=== PATIENT | male | born 1935 | race Caucasian/White ===

== ENCOUNTER → 2024-06-15 | Outpatient (CLI) | payer OTHER, SELFPAY ==
[2024-06-15 10:48] LABS: Collection Type, Urine Clean Catch
[2024-06-15 11:06] LABS: Basophils % (Auto) 0 % (0-2.5); Eosinophils % (Auto) 0 % (0-10); Hematocrit 34.5 % (41.0-53.0); Hemoglobin 11.3 g/dL (13.5-16.0); Immature Granulocytes % (Auto) 0 % (0-0); Immature Granulocytes Auto 0.01 Thou/mm3 (0.00-0.00); Lymphocytes # (Auto) 1.8 Thou/mm3 (1.0-4.8); Lymphocytes % (Auto) 23 % (10-50); Mean Corpuscular HGB Conc 32.8 g/dl (31.0-37.0); Mean Corpuscular Hemoglobin 30.8 pg (25.0-35.0); Mean Corpuscular Volume 94 fL (80-100); Monocytes # (Auto) 0.7 Thou/mm3 (0.0-0.8); Monocytes % (Auto) 9 % (0-12); Neutrophils # (Auto) 5.3 Thou/mm3 (1.8-7.7); Neutrophils % (Auto) 67 % (37-80); Nucleated Red Blood Cell % 0 /100 WBC (0); Platelet Count 186 Thou/mm3 (140-440); RDW Standard Deviation 55.1 fL (35.1-43.9); Red Blood Count 3.67 Miln/mm3 (4.50-5.90); White Blood Count 7.9 Thou/mm3 (3.8-10.6)
[2024-06-15 11:21] LABS: Squamous Epithelial Cell,Urine 1 /hpf (0-5)
[2024-06-15 11:31] LABS: Bilirubin,Urine Negative (Negative); Blood,Urine 1+ (Negative); Clarity,Urine Clear (Clear/Hazy); Color,Urine Lt-Yellow (Lt Yel-Yel); Glucose, Urine Negative (Negative); Ketones,Urine Negative (Negative); Leukocyte Esterase,Urine Negative (Negative); Nitrite,Urine Negative (Negative); PH,Urine 6.5 (5.0-7.0); Protein,Urine 1+ (Neg - Trace); RBC,Urine 5 /hpf (0-3); Specific Gravity,Urine 1.018 (1.001-1.035); Urobilinogen,Urine Negative mg/dL (0.0-1.0); WBC,Urine 2 /hpf (0-5)
[2024-06-15 12:53] LABS: Glucose Estimated Average 103 mg/dL (80-131); Hemoglobin A1C 5.2 % Hgb (4.8-6.0)
[2024-06-15 13:14] LABS: Alkaline Phosphatase 80 U/L (46-116); Thyroid Stimulating Hormone 2.54 uIU/mL (0.55-4.78)
[2024-06-15 14:04] LABS: Alanine Aminotransferase 28 U/L (10-49); Albumin, Serum 4.1 gm/dL (3.4-4.8); Albumin/Globulin Ratio 1.7 (1.2-2.2); Anion Gap 11 (7-16); Aspartate Amino Transferase 57 U/L (0-34); BUN/Creatinine Ratio 11 Ratio (12-20); Bilirubin,Total 0.4 mg/dL (0.3-1.2); Blood Urea Nitrogen 9 mg/dL (9-23); Calcium 9.3 mg/dL (8.3-10.6); Calcium (Corrected) 9.3 mg/dL (8.5-10.1); Carbon Dioxide 27.1 mMol/L (20.0-31.0); Cardiac Risk Estimate 1.8 RATIO (4.0-6.7); Chloride 106 mMol/L (98-107); Cholesterol 149 mg/dL (132-200); Creatinine (Component) 0.8 mg/dL (0.6-1.3); Globulin 2.4 gm/dL (2.3-3.5); Glucose 105 mg/dL (74-106); HDL Cholesterol 84 mg/dL (40-60); LDL Cholesterol,Calculated 55 mg/dL (0-130); Osmolality,Calculated 285 (275-295); Sodium 144 mMol/L (136-145); Total Protein 6.5 gm/dL (5.7-8.2); Triglycerides 51 mg/dL (30-150); eGFR > 60 See Note
== END | disposition home or self-care (01) ==
LOC: COPL 10:17
PROVIDERS: PCP Internal Medicine; Referring Provider Internal Medicine; Visit Provider Internal Medicine
DX: E11.9 Type 2 diabetes mellitus without complications (principal); I10 Essential (primary) hypertension; E78.5 Hyperlipidemia, unspecified
CPT/HCPCS: 36415; 80053; 80061; 81001; 83036; 84443; 85025

== ENCOUNTER 2024-07-07 17:33 | Emergency (ER) | payer MEDICARE, SELFPAY ==
[2024-07-07 17:49] VITALS: PULSE 74; RESP 16; O2SAT 99; BMI 27.4
[2024-07-07 18:05] VITALS: BP 117/68; PULSE 59; RESP 18; TEMP 36.4; O2SAT 94
--- NOTE | 2024-07-07 18:18 | XR_ITS ---
Examination: CT brain head without contrast. 2-D sagittal coronal reconstructions Date and time of exam:July 07, 2024, 1910 hours Comparison July 21, 2023 INDICATIONS: Patient fell today with injury to the head, head pain CTDI: vol (mGy):54.3 DLP: (mGycm):1114 Technique: Multiple CT axial sections of the brain have been obtained, 5 mm slice thickness. Contrast has not been administered. 2-D sagittal, coronal reconstructions have been obtained Low dose protocols were performed. One or more of the following dose reduction techniques were used; automated exposure control, adjustment of the mA and/or KV according to patient size, use of iterative reconstruction technique. Findings: No significant ventricular enlargement. Intra-axial or extra-axial hemorrhage density is not seen. No mass effect or midline shift Basal cisterns are not remarkable. Fourth ventricle is midline. Cranial vault intact. Impression: Negative for acute hemorrhage, mass effect or midline shift
--- NOTE | 2024-07-07 18:18 | EKG_ITS ---
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
--- NOTE | 2024-07-07 18:19 | PD.EDFALL ---
ED Fall Injury RME/HPI General Chief Complaint: Fall Stated Complaint: ALTERED Time Seen by Provider: 07/07/24 18:13 Arrival date/time: 07/07/24 17:33 RME / HPI RME / HPI Narrative: 88-year-old male patient who came in for evaluation by EMS regarding hypoglycemia. Patient was noted to be altered, and was found in the floor lying on the floor when the EMS arrived patient blood sugar was noted to be on the low 60s. Patient was given D10 and went up above 200. Currently patient is alert and oriented x 3 and told me that he had no complaints. Related Data Home Medications ?Medication ?Instructions ?Recorded ?Confirmed Multivitamins (Daily Multiple 1 tab PO QDAY ##0 03/17/14 06/18/20 Vitamin) omega-3 fatty acids 1,000 mg 1 cap PO QDAY ##0 03/17/14 06/18/20 capsule (Fish Oil Concentrate) atorvastatin 20 mg tablet 20 mg PO QDAY 11/12/18 06/18/20 losartan 50 mg tablet 50 mg PO QDAY 11/12/18 06/18/20 metformin 850 mg tablet 850 mg PO QDAY 11/12/18 06/18/20 Held on 06/18/20. Instructions: Resume on 06/21/20. ticagrelor 90 mg tablet (Brilinta) 90 mg PO BID 11/12/18 06/18/20 aspirin 81 mg tablet 81 mg PO QDAY 06/14/20 06/18/20 Previous Rx's ?Medication ?Instructions ?Recorded Calcium/Magnesium (Calcium 1 tab PO QDAY 11/03/18 Magnesium Tablet) cholecalciferol (vitamin D3) 25 2,000 iu PO QDAY 11/03/18 mcg (1,000 unit) tablet (Vitamin D3) multivitamin with minerals-ferrous 1 tab PO QDAY 11/03/18 sulfate 4.5 mg iron tablet (One Daily Multivitamins with Minerals) acetaminophen 300 mg-codeine 15 mg 1 tab PO BID PRN pain #8 tabs 06/05/22 tablet Allergies Allergy/AdvReac Type Severity Reaction Status Date / Time No Known Allergies Allergy Verified 07/22/23 09:02 Review of Systems Review of Systems Narrative Review of Systems: Review of system reviewed and within normal limits except mentioned in HPI ED Exam Narrative Physical exam: VITAL SIGNS: Reviewed. GENERAL APPEARANCE: Alert and interactive, follows commands, no acute distress, HEAD AND FACE: Non-traumatic. ENT: PERRL, pink conjunctivitis, eyelid no trauma, Mucous membrane moist. NECK: Supple, nontender, no nuchal rigidity. CHEST: No tenderness, no crepitus, no paradoxical movement, no retractions. LUNGS: Clear, well ventilated, symmetric, no rales, no wheezing, no ronchi, no stridor, good breath sounds bilaterally. HEART: Regular rate, regular rhythm, no murmur, no gallops. ABDOMEN: Soft, positive bowel sounds, nondistended, no guarding, nontender, no rebound, no masses, RECTAL: Deferred. GENITAL: Deferred. NEUROLOGICAL: Gross motor function intact sensory function intact, Appropriate for age. MUSCULOSKELETAL: low back nontender, full range of motion. EXTREMITIES: Nontender, full range of motion. SKIN: Color pink, dry, no rash, no lacerations, no abrasions, no contusions. LYMPHATICS: Deferred. Course Quality Measures none Orders Category Date Time Status EKG (ED ONLY) *Do not use* NOW Care 07/07/24 18:[address] head/brain wo con Stat Exams 07/07/24 18:18 Completed EKG (ED Only) Stat Exams 07/07/24 18:18 Draft CBC [CBC] Stat Lab 07/07/24 18:33 Completed CMP [Comprehensive Metabolic Panel] Stat Lab 07/07/24 18:33 Completed UA, C/S IF [Urinalysis, C/S if Indicated] Stat Lab 07/07/24 19:41 Completed Vital Signs Vital signs: Vital Signs Temperature 97.6 F 07/07/24 18:05 Pulse Rate 59 L 07/07/24 18:05 Respiratory Rate 18 07/07/24 18:05 Blood Pressure 117/68 07/07/24 18:05 Pulse Oximetry (%) 94 L 07/07/24 18:05 Oxygen Delivery Method Room Air 07/07/24 18:05 Fall MDM Narrative MDM Narrative:: 88-year-old male patient who came in for evaluation by EMS regarding hypoglycemia. Patient was noted to be altered, and was found in the floor lying on the floor when the EMS arrived patient blood sugar was noted to be on the low 60s. Patient was given D10 and went up above 200. Currently patient is alert and oriented x 3 and told me that he had no complaints. On multiple reevaluation patient is denying any complaints. Patient is alert and oriented x 3, workup today all came back unremarkable CT scan of the head came back unremarkable, EKG showed paced rhythm, ventricular rate of 65 bpm, CT interval 247 MS, no ST segment elevation depression noted. I spoke with patient's PCP, Dr. Jaimes, discussed the case, and told me that she cannot force the patient to go to a mcc. Her daughter wants her to go to a mcc. Prior to discharge I asked the patient again and told me that he can take care of himself he does not want to go to a mcc. Patient data External records reviewed:: None Clinical information provided by:: patient Social determinants that could affect healthcare access:: none Patient has the following chronic illnesses:: Hypertension diabetes mellitus, How is presenting disease/condition affected by chronic disease/condition?: exacerbated by Evaluation data The following diagnostics were reviewed and interpreted by me:: lab results, radiology exam(s) and EKG tracing(s) Lab and/or radiology exams considered but not ordered:: None Interpretation Summary: See results in MDM none Medications / Prescriptions Medications or Prescriptions considered but not ordered:: None Medication administrations:: None Consultations Consultation(s) initiated? (list below): No Diagnosis Fall Differential Diagnosis: other (Fall, hypoglycemia, dehydration) Most likely diagnosis given after review of the tests above:: Fall Admission Indicated Admission indicated?: not indicated Admission Request Was there a request for admission?: No Disposition Plan Disposition Plan: Discharge Discharge Attestation Discharge Attestation: The patient and all family members were given an opportunity to ask questions and understood the discharge instructions. Discharge instructions specifically effects, indications for sooner follow up or return to the emergency department, and the expected course of current diagnosis. Patient condition: Stable Discharge Plan Plan Patient Disposition: HOME (Self Care) Disposition Comment: stable Prescriptions/Referrals Prescriptions/Med Rec: No Action losartan 50 mg tablet 50 mg PO QDAY atorvastatin 20 mg tablet 20 mg PO QDAY metformin 850 mg tablet 850 mg PO QDAY Brilinta 90 mg tablet 90 mg PO BID omega-3 fatty acids [Fish Oil Concentrate] 1 CAP capsule 1 cap PO QDAY Qty: 0 Multivitamins (Daily Multiple Vitamin) 1 TAB tablet 1 tab PO QDAY Qty: 0 aspirin 81 mg Tablet 81 mg PO QDAY cholecalciferol (vitamin D3) [Vitamin D3] 1,000 unit Tablet 2,000 iu PO QDAY 0RF One Daily Multi-Vit w-Mineral 4.5 mg iron Tablet 1 tab PO QDAY 0RF Calcium/Magnesium (Calcium Magnesium Tablet) 1 tab PO QDAY 0RF acetaminophen-codeine 300-15 mg tablet 1 tab PO BID PRN (Reason: pain) Qty: 8 0RF Referrals: No Primary/Family,Physician [Primary Care Provider] - In 1 week Problem List Clinical Impression: Fall Patient/Caregiver Discharge Instructions Discharge Activity: activity as tolerated Education Materials: Preventing Falls Moving Safely ... Additional Instructions: Thank you for the opportunity for serving you today. You are stable for discharged . You are advised to: Follow-up with your PCP in 1 to 2 days Return to ED for worsening of symptoms Increase oral fluids Print Language: Belgian Stand Alone Forms: Nelida Award Info., Patient Portal Info Letter PA/RONEY Supervising Physician PA/RONEY Supervising Physician: MD Kathie
[2024-07-07 18:46] LABS: Basophils % (Auto) 0 % (0-2.5); Eosinophils % (Auto) 1 % (0-10); Hematocrit 34.4 % (41.0-53.0); Hemoglobin 11.6 g/dL (13.5-16.0); Immature Granulocytes % (Auto) 0 % (0-0); Immature Granulocytes Auto 0.02 Thou/mm3 (0.00-0.00); Lymphocytes # (Auto) 2.1 Thou/mm3 (1.0-4.8); Lymphocytes % (Auto) 34 % (10-50); Mean Corpuscular HGB Conc 33.7 g/dl (31.0-37.0); Mean Corpuscular Hemoglobin 31.9 pg (25.0-35.0); Mean Corpuscular Volume 95 fL (80-100); Monocytes # (Auto) 0.4 Thou/mm3 (0.0-0.8); Monocytes % (Auto) 7 % (0-12); Neutrophils # (Auto) 3.6 Thou/mm3 (1.8-7.7); Neutrophils % (Auto) 58 % (37-80); Nucleated Red Blood Cell % 0 /100 WBC (0); Platelet Count 200 Thou/mm3 (140-440); Red Blood Count 3.64 Miln/mm3 (4.50-5.90); White Blood Count 6.2 Thou/mm3 (3.8-10.6)
[2024-07-07 19:06] LABS: Alanine Aminotransferase 19 U/L (10-49); Albumin/Globulin Ratio 1.5 (1.2-2.2); Alkaline Phosphatase 73 U/L (46-116); Anion Gap 11 (7-16); Aspartate Amino Transferase 34 U/L (0-34); BUN/Creatinine Ratio 18 Ratio (12-20); Bilirubin,Total 0.3 mg/dL (0.3-1.2); Blood Urea Nitrogen 16 mg/dL (9-23); Calcium 8.2 mg/dL (8.3-10.6); Calcium (Corrected) 8.2 mg/dL (8.5-10.1); Chloride 101 mMol/L (98-107); Creatinine (Component) 0.9 mg/dL (0.6-1.3); Estimated Creatinine Clearance 56.5 mL/min (>60); Globulin 2.6 gm/dL (2.3-3.5); Glucose 107 mg/dL (74-106); Osmolality,Calculated 271 (275-295); Potassium 4.4 mMol/L (3.4-5.1); Sodium 135 mMol/L (136-145); Total Protein 6.6 gm/dL (5.7-8.2); eGFR > 60 See Note
[2024-07-07 19:23] VITALS: BP 124/65; PULSE 67; RESP 17; TEMP 36.8; O2SAT 96
[2024-07-07 19:42] VITALS: BP 112/48; PULSE 62; RESP 19; TEMP 36.5; O2SAT 96
--- NOTE | 2024-07-07 19:45 | PC.NURSE ---
pt returned from ct. linen change, clothes removed because they were soiled. assisted pt with urinal in bed, brief put into place. US sent. EKG done. Pt positioned to comfort
[2024-07-07 20:16] LABS: Collection Type, Urine Clean Catch; Squamous Epithelial Cell,Urine 0 /hpf (0-5)
[2024-07-07 20:20] LABS: Bilirubin,Urine Negative (Negative); Blood,Urine Negative (Negative); Clarity,Urine Clear (Clear/Hazy); Color,Urine Lt-Yellow (Lt Yel-Yel); Culture Indicated,Urine Not Indicated; Glucose, Urine Negative (Negative); Hyaline Casts,Urine < 1 /hpf (0-1); Ketones,Urine Negative (Negative); Leukocyte Esterase,Urine Negative (Negative); Nitrite,Urine Negative (Negative); Protein,Urine Negative (Neg - Trace); RBC,Urine 1 /hpf (0-3); Specific Gravity,Urine 1.012 (1.001-1.035); Urobilinogen,Urine Negative mg/dL (0.0-1.0); WBC,Urine < 1 /hpf (0-5)
[2024-07-07 22:04] VITALS: BP 107/46; PULSE 60; RESP 16; TEMP 36.8; O2SAT 96
== END 2024-07-07 22:06 | disposition home or self-care (01) ==
PROVIDERS: Nurse Practitioner Family; Emergency Provider Emergency Medicine
DX: S09.90XA Unspecified injury of head, initial encounter (principal); W19.XXXA Unspecified fall, initial encounter; R94.31 Abnormal electrocardiogram [ECG] [EKG]; I10 Essential (primary) hypertension; Z95.0 Presence of cardiac pacemaker
CPT/HCPCS: 36415; 70450; 80053; 81001; 85025; 93005; 99284

== ENCOUNTER → 2024-07-28 | Outpatient (CLI) | payer OTHER, SELFPAY ==
[2024-07-28 12:18] LABS: Basophils % (Auto) 1 % (0-2.5); Eosinophils % (Auto) 1 % (0-10); Hematocrit 34.5 % (41.0-53.0); Hemoglobin 11.4 g/dL (13.5-16.0); Immature Granulocytes % (Auto) 0 % (0-0); Immature Granulocytes Auto 0.01 Thou/mm3 (0.00-0.00); Lymphocytes # (Auto) 2.1 Thou/mm3 (1.0-4.8); Lymphocytes % (Auto) 37 % (10-50); Mean Corpuscular Hemoglobin 31.5 pg (25.0-35.0); Mean Corpuscular Volume 95 fL (80-100); Monocytes # (Auto) 0.6 Thou/mm3 (0.0-0.8); Monocytes % (Auto) 11 % (0-12); Neutrophils # (Auto) 2.9 Thou/mm3 (1.8-7.7); Neutrophils % (Auto) 51 % (37-80); Nucleated Red Blood Cell % 0 /100 WBC (0); Platelet Count 185 Thou/mm3 (140-440); RDW Standard Deviation 58.4 fL (35.1-43.9); Red Blood Count 3.62 Miln/mm3 (4.50-5.90); White Blood Count 5.7 Thou/mm3 (3.8-10.6)
[2024-07-28 12:32] LABS: Glucose Estimated Average 100 mg/dL (80-131); Hemoglobin A1C 5.1 % Hgb (4.8-6.0)
[2024-07-28 12:34] LABS: B-Type Natriuretic Peptide 328 pg/mL (0-100)
[2024-07-28 12:46] LABS: Alanine Aminotransferase 13 U/L (10-49); Albumin, Serum 4.2 gm/dL (3.4-4.8); Alkaline Phosphatase 64 U/L (46-116); Anion Gap 7 (7-16); Aspartate Amino Transferase 27 U/L (0-34); BUN/Creatinine Ratio 28 Ratio (12-20); Bilirubin,Direct 0.2 mg/dL (0.0-0.3); Bilirubin,Total 0.7 mg/dL (0.3-1.2); Blood Urea Nitrogen 22 mg/dL (9-23); Calcium 9.4 mg/dL (8.3-10.6); Carbon Dioxide 29.2 mMol/L (20.0-31.0); Cardiac Risk Estimate 2.5 RATIO (4.0-6.7); Chloride 107 mMol/L (98-107); Cholesterol 180 mg/dL (132-200); Creatinine (Component) 0.8 mg/dL (0.6-1.3); Free T4 (Free Thyroxine) 0.79 ng/dL (0.89-1.76); Glucose 93 mg/dL (74-106); HDL Cholesterol 72 mg/dL (40-60); LDL Cholesterol,Calculated 93 mg/dL (0-130); Osmolality,Calculated 288 (275-295); Potassium 4.5 mMol/L (3.4-5.1); Sodium 143 mMol/L (136-145); Thyroid Stimulating Hormone 4.04 uIU/mL (0.55-4.78); Total Protein 6.8 gm/dL (5.7-8.2); Triglycerides 75 mg/dL (30-150); eGFR > 60 See Note
== END | disposition home or self-care (01) ==
LOC: COPL 11:17
PROVIDERS: PCP Internal Medicine; Referring Provider Internal Medicine Cardiovascular Disease; Visit Provider Internal Medicine Cardiovascular Disease
DX: E78.5 Hyperlipidemia, unspecified (principal); I11.0 Hypertensive heart disease with heart failure; E11.65 Type 2 diabetes mellitus with hyperglycemia; I50.9 Heart failure, unspecified
CPT/HCPCS: 36415; 80048; 80061; 80076; 83036; 83880; 84439; 84443; 85025

== ENCOUNTER 2024-09-19 14:51 | Emergency (ER) | payer OTHER, MEDICAID, SELFPAY ==
[2024-09-19 15:02] VITALS: BP 84/45; PULSE 66; RESP 16; TEMP 36.9; O2SAT 94
[2024-09-19 15:23] VITALS: PULSE 70; O2SAT 95; BMI 28.9
--- NOTE | 2024-09-19 15:30 | XR_ITS ---
Examination: CT brain head without contrast. 2-D sagittal coronal reconstructions Date and time of exam:September 19, 2024 1629 hours Comparison July 07, 2024 INDICATIONS: Altered mental status beginning today CTDI: vol (mGy):52.5 DLP: (mGycm):1043 Technique: Multiple CT axial sections of the brain have been obtained, 5 mm slice thickness. Contrast has not been administered. 2-D sagittal, coronal reconstructions have been obtained Low dose protocols were performed. One or more of the following dose reduction techniques were used; automated exposure control, adjustment of the mA and/or KV according to patient size, use of iterative reconstruction technique. Findings: No significant ventricular enlargement. Intra-axial or extra-axial hemorrhage density is not seen. No mass effect or midline shift Basal cisterns are not remarkable. Fourth ventricle is midline. Cranial vault intact. Impression: Negative for acute hemorrhage, mass effect or midline shift Advise clinical correlation and follow up accordingly
--- NOTE | 2024-09-19 15:30 | EKG_ITS ---
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
--- NOTE | 2024-09-19 15:30 | XR_ITS ---
Examination: AP chest single view Technique one AP portable upright chest single view Exam date and time: September 19, 2024 1539 hours INDICATIONS: Shortness of breath weakness beginning today FINDINGS: Mild prominence of ventricle CABG Cardiac leads satisfactory position Moderate vascular congestion Atelectasis in the right lower lobe Old fracture left sixth and seventh ribs IMPRESSION: Moderate vascular congestion Subsegmental atelectasis right base
[2024-09-19] MEDS: SODIUM CHLORIDE 0.9% 1000 ML 1,000 ML 999 ML IV (16:05)
[2024-09-19 16:36] VITALS: BP 106/55; PULSE 62; RESP 14; TEMP 36.8; O2SAT 96
[2024-09-19 16:50] LABS: Lactate (Lactic Acid) 3.3 mMol/L (0.4-2.0)
[2024-09-19 16:59] LABS: Basophils % (Auto) 0 % (0-2.5); Eosinophils # (Auto) 0.1 Thou/mm3 (0.0-0.5); Eosinophils % (Auto) 1 % (0-10); Hematocrit 31.9 % (41.0-53.0); Hemoglobin 10.6 g/dL (13.5-16.0); Immature Granulocytes % (Auto) 0 % (0-0); Immature Granulocytes Auto 0.01 Thou/mm3 (0.00-0.00); Lymphocytes # (Auto) 2.5 Thou/mm3 (1.0-4.8); Lymphocytes % (Auto) 41 % (10-50); Mean Corpuscular HGB Conc 33.2 g/dl (31.0-37.0); Mean Corpuscular Hemoglobin 32.6 pg (25.0-35.0); Mean Corpuscular Volume 98 fL (80-100); Monocytes # (Auto) 0.5 Thou/mm3 (0.0-0.8); Monocytes % (Auto) 8 % (0-12); Neutrophils # (Auto) 3.1 Thou/mm3 (1.8-7.7); Neutrophils % (Auto) 49 % (37-80); Nucleated Red Blood Cell % 0 /100 WBC (0); Platelet Count 167 Thou/mm3 (140-440); RDW Standard Deviation 54.6 fL (35.1-43.9); Red Blood Count 3.25 Miln/mm3 (4.50-5.90); White Blood Count 6.2 Thou/mm3 (3.8-10.6)
[2024-09-19 17:06] LABS: Collection Type, Urine Catheter; Squamous Epithelial Cell,Urine 0 /hpf (0-5)
[2024-09-19 17:14] LABS: Alanine Aminotransferase 18 U/L (10-49); Albumin, Serum 3.7 gm/dL (3.4-4.8); Albumin/Globulin Ratio 1.7 (1.2-2.2); Alcohol, Blood Medical 131.3 mg/dL (0-10.0); Alkaline Phosphatase 60 U/L (46-116); Anion Gap 14 (7-16); Aspartate Amino Transferase 31 U/L (0-34); BUN/Creatinine Ratio 16 Ratio (12-20); Bilirubin,Total 0.4 mg/dL (0.3-1.2); Blood Urea Nitrogen 13 mg/dL (9-23); Calcium 8.2 mg/dL (8.3-10.6); Calcium (Corrected) 8.4 mg/dL (8.5-10.1); Carbon Dioxide 22.8 mMol/L (20.0-31.0); Chloride 106 mMol/L (98-107); Creatinine (Component) 0.8 mg/dL (0.6-1.3); Estimated Creatinine Clearance 55.5 mL/min (>60); Globulin 2.2 gm/dL (2.3-3.5); Glucose 82 mg/dL (74-106); Osmolality,Calculated 284 (275-295); Potassium 3.8 mMol/L (3.4-5.1); Sodium 143 mMol/L (136-145); Total Protein 5.9 gm/dL (5.7-8.2); Troponin I 0.031 ng/mL (0.0-0.045); eGFR > 60 See Note
[2024-09-19 17:24] LABS: Bilirubin,Urine Negative (Negative); Blood,Urine Negative (Negative); Clarity,Urine Clear (Clear/Hazy); Color,Urine Lt-Yellow (Lt Yel-Yel); Glucose, Urine Negative (Negative); Ketones,Urine Negative (Negative); Nitrite,Urine Negative (Negative); Protein,Urine Negative (Neg - Trace); RBC,Urine 3 /hpf (0-3); Specific Gravity,Urine 1.009 (1.001-1.035); Urobilinogen,Urine Negative mg/dL (0.0-1.0); WBC,Urine 1 /hpf (0-5)
[2024-09-19 17:28] LABS: Leukocyte Esterase,Urine Trace (Negative)
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
--- NOTE | 2024-09-19 17:50 | PD.EDADULT ---
ED General RME/HPI General Chief complaint: Alcohol Stated complaint: ETOH Time Seen by Provider: 09/19/24 15:29 Arrival date/time: 09/19/24 14:51 RME / HPI RME / HPI narrative: 89 year old male with history of dementia, s/p CABG, hypertension, diabetes, hyperlipidemia, BPH presents to the ED BIBA from home for alcohol intoxication. Per medics, daughter had called EMS due to patient slurring his words. While in the ED patient states he doesn't know why he is here and has no complaints. Admits to drinking and had 3-4 beers today. Denies fevers, chills, sweats, chest pain, cough, shortness of breath, abdominal pain, n/v/d, or urinary symptoms. Related Data Home Medications ?Medication ?Instructions ?Recorded ?Confirmed Multivitamins (Daily Multiple 1 tab PO QDAY ##0 03/17/14 06/18/20 Vitamin) omega-3 fatty acids 1,000 mg 1 cap PO QDAY ##0 03/17/14 06/18/20 capsule (Fish Oil Concentrate) atorvastatin 20 mg tablet 20 mg PO QDAY 11/12/18 06/18/20 losartan 50 mg tablet 50 mg PO QDAY 11/12/18 06/18/20 metformin 850 mg tablet 850 mg PO QDAY 11/12/18 06/18/20 Held on 06/18/20. Instructions: Resume on 06/21/20. ticagrelor 90 mg tablet (Brilinta) 90 mg PO BID 11/12/18 06/18/20 aspirin 81 mg tablet 81 mg PO QDAY 06/14/20 06/18/20 Previous Rx's ?Medication ?Instructions ?Recorded Calcium/Magnesium (Calcium 1 tab PO QDAY 11/03/18 Magnesium Tablet) cholecalciferol (vitamin D3) 25 2,000 iu PO QDAY 11/03/18 mcg (1,000 unit) tablet (Vitamin D3) multivitamin with minerals-ferrous 1 tab PO QDAY 11/03/18 sulfate 4.5 mg iron tablet (One Daily Multivitamins with Minerals) acetaminophen 300 mg-codeine 15 mg 1 tab PO BID PRN pain #8 tabs 06/05/22 tablet Allergies Allergy/AdvReac Type Severity Reaction Status Date / Time No Known Allergies Allergy Verified 04/03/24 09:02 Review of Systems Review of Systems Systems Reviewed: All systems reviewed, normal except as documented Past Medical History Past Medical History NEUROLOGIC: Positive Dementia and Alzheimer's Disease CARDIAC: Positive Cardiac Disorders, Coronary Artery Disease, Hypercholesterolemia and Hypertension MUSCULOSKELETAL: Positive Arthritis and Fractures ENT: Positive Deafness ENDOCRINE: Positive Endocrine Disorders PSYCHO/SOCIAL: Positive Anxiety OTHER HISTORY: Positive Autoimmune Disease, Falls and Cancer Family History FAMILY HISTORY: Positive Family Cardiac Disorders and Family Cancer Surgical History SURGICAL: Positive Cardiac Surgery, Coronary Artery Bypass Graft, Coronary Stent, Pacemaker and Angiogram Social History SMOKING STATUS: Never smoker SECOND HAND EXPOSURE: No SUBSTANCE USE: does not use ED Exam Narrative Physical exam: GENERAL APPEARANCE: AxOx4, no obvious distress, smells of alcohol HEENT: NC, AT. Dry MM. EOMI, clear conjunctiva, oropharynx clear. NECK: Supple without lymphadenopathy. No stiffness or restricted ROM. HEART: Normal rate and regular rhythm, normal S1/S1, no m/r/g LUNGS: CTAB, moving air well. No crackles or wheezes are heard. ABDOMEN: Soft, nontender, nondistended with good bowel sounds heard. BACK: No midline C/T/L spine pain or deformity, No CVAT, no obvious deformity. EXTREMITIES: Without cyanosis, clubbing or edema. MUSCULOSKELETAL: FROM of all major joints, no chest tenderness NEUROLOGICAL: Grossly nonfocal. Alert and oriented, moving all 4 extremities. CN not formally tested but appear grossly intact. Skin: Warm and dry without any rash. Course Quality Measures none Orders Category Date Time Status EKG (ED ONLY) *Do not use* NOW Care 09/19/24 15:[address] head/brain wo con Stat Exams 09/19/24 15:30 Completed EKG (ED Only) Stat Exams 09/19/24 15:30 Draft XR chest 1V Stat Exams 09/19/24 15:30 Completed Alcohol, Blood Medical Stat Lab 09/19/24 16:41 Completed CBC Stat Lab 09/19/24 16:41 Completed CMP [Comprehensive Metabolic Panel] Stat Lab 09/19/24 16:41 Completed Lactate (Lactic Acid) Stat Lab 09/19/24 16:41 Results Troponin I Stat Lab 09/19/24 16:41 Completed Urinalysis Stat Lab 09/19/24 15:00 Completed Sodium Chloride 0.9% 1000 ml [Ns] 1,000 ml Med 09/19/24 15:30 Discontinued IV 999 mls/hr Vital Signs Vital signs: Vital Signs Temperature 98.4 F 09/19/24 15:02 Pulse Rate 66 09/19/24 15:02 Respiratory Rate 16 09/19/24 15:02 Blood Pressure 84/45 L 09/19/24 15:02 Pulse Oximetry (%) 94 L 09/19/24 15:02 Pulse ox is 94% on room air which is adequate. Discharge Plan Plan Patient Disposition: HOME (Self Care) Prescriptions/Referrals Prescriptions/Med Rec: No Action losartan 50 mg tablet 50 mg PO QDAY atorvastatin 20 mg tablet 20 mg PO QDAY metformin 850 mg tablet 850 mg PO QDAY Brilinta 90 mg tablet 90 mg PO BID omega-3 fatty acids [Fish Oil Concentrate] 1 CAP capsule 1 cap PO QDAY Qty: 0 Multivitamins (Daily Multiple Vitamin) 1 TAB tablet 1 tab PO QDAY Qty: 0 aspirin 81 mg Tablet 81 mg PO QDAY cholecalciferol (vitamin D3) [Vitamin D3] 1,000 unit Tablet 2,000 iu PO QDAY 0RF One Daily Multi-Vit w-[place] 4.5 mg iron Tablet 1 tab PO QDAY 0RF Calcium/Magnesium (Calcium Magnesium Tablet) 1 tab PO QDAY 0RF acetaminophen-codeine 300-15 mg tablet 1 tab PO BID PRN (Reason: pain) Qty: 8 0RF Referrals: Ruma Jaimes MD [Primary Care Provider] - In 1 week Problem List Clinical Impression: Alcoholic intoxication, Dehydration, mild Patient/Caregiver Discharge Instructions Education Materials: ED Dehydration (Adult), ED Alcohol Intoxication Additional Instructions: Do not drink alcohol in excess, consider stopping alcohol completely for better health. Follow-up with your primary care doctor, Dr. Jaimes, or [facility] if you feel you would like alcohol and/or drug rehabilitation. Print Language: Bahraini Stand Alone Forms: Nelida Award Info., Patient Portal Info Letter MDM Narrative MDM hospital course: Maryana Penny am scribing for and in the presence of Dr. Pereyra. Patient remains clinically stable throughout the emergency department visit. We reviewed all the results, analysis, and treatment plans. Patient is amenable to discharge. Strict return precautions were outlined. Patient was discharged in stable condition. Clinical Information Provided by patient and EMS Medical Records Reviewed [facility] and EMS Meds/Rx Considered, not Ordered None Labs/Rad/Tests considered, not Ordered None Chronic Illness/Social Conditions which may negatively complicate care or outcome(s)-explain: ETOH/drugs/substance abuse EKG Interpretation EKG #1: Date/time of EK09/19/24 15:56 EKG interpretation: Paced rhythm, rate 64, no STEMI. Lab Interpretation Labs: interpreted by me and see narrative above Imaging Imaging interpretation: see narrative above Radiology reports / interpretation(s): Ordering Physician: Donis Pereyra MD Date of Service: 09/19/24 Procedure(s): XR chest 1V Accession Number(s): [id number] cc: Donis Pereyra MD; Tavo Wilson MD~ Examination: AP chest single view Technique one AP portable upright chest single view Exam date and time: September 19, 2024 1539 hours INDICATIONS: Shortness of breath weakness beginning today FINDINGS: Mild prominence of ventricle CABG Cardiac leads satisfactory position Moderate vascular congestion Atelectasis in the right lower lobe Old fracture left sixth and seventh ribs IMPRESSION: Moderate vascular congestion Subsegmental atelectasis right base Dictated By:Tavo Wilson MD Signed By:<Electronically signed by Tavo Wilson MD in OV>09/19/24 1545 Ordering Physician: Donis Pereyra MD Date of Service: 09/19/24 Procedure(s): CT head/brain wo con Accession Number(s): [id number] cc: Donis Pereyra MD; Tavo Wilson MD~ Examination: CT brain head without contrast. 2-D sagittal coronal reconstructions Date and time of exam:September 19, 2024 1629 hours Comparison July 07, 2024 INDICATIONS: Altered mental status beginning today CTDI: vol (mGy):52.5 DLP: (mGycm):1043 Technique: Multiple CT axial sections of the brain have been obtained, 5 mm slice thickness. Contrast has not been administered. 2-D sagittal, coronal reconstructions have been obtained Low dose protocols were performed. One or more of the following dose reduction techniques were used; automated exposure control, adjustment of the mA and/or KV according to patient size, use of iterative reconstruction technique. Findings: No significant ventricular enlargement. Intra-axial or extra-axial hemorrhage density is not seen. No mass effect or midline shift Basal cisterns are not remarkable. Fourth ventricle is midline. Cranial vault intact. Impression: Negative for acute hemorrhage, mass effect or midline shift Advise clinical correlation and follow up accordingly Dictated By:Tavo Wilson MD Signed By:<Electronically signed by Tavo Wilson MD in OV>09/19/24 1532 Medication Administration(s) Medication Administration History Discontinued Medications Sodium Chloride (Ns) 1,000 mls @ 999 mls/hr IV .Q1H1M ONE Stop: 09/19/24 16:30 Last Infusion: 09/19/24 18:01 Dose: Infused Documented By: Admin: 09/19/24 16:05 Dose: 999 mls/hr Documented By: ANDREW See above Diagnosis Most likely dx, and/or detailed dx discussion: Alcohol intoxication Dehydration Dispositon Disposition: Discharge Home
--- NOTE | 2024-09-19 18:40 | PC.NURSE ---
Daughter at bedside that has power of banking attorney refused to take pt home after being discharged she states it's unsafe discharge and that told her to bring him here to get placed social service made aware and in room to talk to daughter
[2024-09-19 18:44] VITALS: BP 110/71; PULSE 67; RESP 17; TEMP 37; O2SAT 97
--- NOTE | 2024-09-19 19:20 | PC.NURSE ---
Assumed care of pt. Pt out of bed upon entering the room requesting to use the bathroom. Pt redirected to bed and to use the urinal, pt complied. Pt awake and alert and very pleasant. Pt placed back in bed and given a urinal which he used successfully. Pt is currently awaiting Reuse Technician due to pt's daughter insisting that pt needs SNF placement. SS will continuing working on pt's need in the AM upon her return. No acute distress noted. Plan of care currently ongoing.
[2024-09-19 19:47] LABS: Reflex Lactate? Y
[2024-09-19 20:12] LABS: Lactic Acid, 3 HR 2.8 mMol/L (0.4-2.0)
--- NOTE | 2024-09-19 20:24 | PC.NURSE ---
Pt laying in gurney with eyes closed. Pt reacts to verbal and tactile stimulation. Warm blanket given. Bed rails up X4.
[2024-09-19 21:31] VITALS: BP 140/63; PULSE 63; RESP 17; TEMP 36.6; O2SAT 98
[2024-09-20] VITALS (9 sets, daily range): BP systolic 132–174; BP diastolic 47–89; PULSE 63–74; RESP 12–18; TEMP 36.5–37.1; O2SAT 95–99; BMI 14.0
--- NOTE | 2024-09-20 04:35 | PC.NURSE ---
encouraged pt to stand at bedside while i changed his sheets. encouraged pt to do pericare himself but he needed assistance with his bottom. we took his brief off and put him in hospital provided underwear. brought pt apple juice, sandwich and chips. pt sitting on the edge of the bed eating. pt has been using urinal on his own and calling for assistance when needed.
--- NOTE | 2024-09-20 05:14 | EDNOTE_ITS ---
Emergency Room Addendum Addendum Narrative: Notified by the charge nurse that the patient was discharged by the day shift, but does not have any family members that are willing to pick him up. APS was notified. Patient has been resting comfortably throughout the night and is not under any distress. 0600: Care signed out to Dr. Pereyra (emergency physician). Past medical, surgical, social and family history reviewed. Vitals and home medications reviewed. Results and treatment plan discussed. They will assume the care of the patient at this time and will follow the patient, pending vp digital marketing social media and crm consultation.
--- NOTE | 2024-09-20 05:18 | PC.NURSE ---
Daughter Veronica Rutledge called to check in on update on her dad - This blog writer notified daughter that pt was discharged but still in the ER awaiting to be picked up. She stated that she was told the pt was going to be placed at a facility and that the oncoming night MD was to re-evaluate pt. I notified her that the production supervisor off shift MD was not going to assess pt due to the pt being discharged by the previous day shift MD. She stated his PCP needed to be involved due to his PCP requesting to have pt placed. This blog writer suggested for her to call after 0800 to speak to SS.
--- NOTE | 2024-09-20 06:15 | PD.EDADDENDU ---
Emergency Room Addendum Addendum Narrative: 0600: Care assumed from Dr. Duque, the previous shift emergency physician. Past medical, surgical, social and family history reviewed. Vitals and home medications reviewed. I will assume the care of the patient at this time, pending consultation with renal social worker. Please refer to the emergency department record for history and examination from initial visit.?The following addendum documentation note is intended to reflect any pending information, findings, or radiology results not included in the patient?s initial chart. 1800: Patient signed out to Dr. Duque pending SNF placement. Patient has remained stable through ED course.
--- NOTE | 2024-09-20 07:20 | PC.NURSE ---
Report received from pm nurse, patient lying in rney quietly sleeping, snoring, awakens and responds normally to voice. Skin warm dry and pink, patient awaiting s/s consult with family, Call light within reach, VSS.
--- NOTE | 2024-09-20 07:24 | PC.CC ---
Addendum entered by Mercedes Alfredo 09/20/24 18:08: 1748-ASW received a phone call from [facility] [phone] who stated she is in the process of moving patients around to make room for this pt. Pelon stated she will f/u with [employer] tomorrow morning and will contact MARIANO Alva with the acceptance as soon as she hears from [employer]. [facility] is aware that MARIANO Alva will take over this case and this proposal manager writer informed [facility] that MARIANO Alva is knowledgeable of this case. 1750-ASW contacted pts daughter Veronica to inform her that [facility] will accept the pt pending insurance auth. Veronica reported she prefers [facility] as she lives in [place] and she would be closer to the pt. ASW provided the address and phone number to [facility] and she stated she would f/u with them once the pt is accepted. Addendum entered by Mercedes Alfredo 09/20/24 17:18: ASW attempted to contact [facility], specifically [facility], but she was gone for the day. ASW left a detailed voice message which included if she was able to contact [employer] with an Auth for acceptance. ASW also attempted to contact [employer] and left a voice message for Shekhar Fry [phone] x. [phone] asking if any of the SNFs had called requesting an auth for acceptance for this pt. As of this writing, the above mentioned have not returned the call. MARIANO Alva to f/u in the AM. Addendum entered by Mercedes Alfredo 09/20/24 15:55: The following Cardiology Physician facilites have tentatively accepted pending insurance auth: Pilar [facility] at [facility] [phone] [facility] [phone] [facility] At this ASW is waiting on an Auth from [employer] [phone] Addendum entered by Mercedes Alfredo 09/20/24 15:24: [facility] has accepted, but pts daughter would like placement with [facility] . Pts margiugther stated she would call back to provide a definite answer as to where she wants the pt to be placed at. ASW will contact the pts daughter in 45 minutes to inquire about her decision. Addendum entered by Mercedes Alfredo 09/20/24 14:59: To add to the previous note: ASW contacted [facility] and spoke with Pelon who stated she may possibly accept the pt, but their facility is attempting to move pts around so they can make room for the pt. [facility] stated that they may not have room until tomorrow morning for the pt. [facility] stated she would call back with an answer by the end of this afternoon. Addendum entered by Mercedes Alfredo 09/20/24 14:57: ASW contacted [facility] and spoke to Shekhar [phone] x.[phone]. ASW presented the case and [facility] staff stated that they will waive the 2 night stay, but they will only approve a rat exterminator placement for the pt due to his behaviors. [facility] stated since the pt does wander, a group home placement would be best and they will only approve LT for the pt. Addendum entered by Mercedes Alfredo 09/20/24 12:03: It should be noted that during the conversation between ASW and the pts daughter Veronica, she reported that the pt recently got a DUI, as he was driving drunk and had his drivers license revoked. Additionally, per the pts daughter, the pt is not supposed to drive due to his dementia dx. Veronica stated that recently the pt attempted to drive to visit her in [place], but ended up in another town and did not know where he was at. Per Veronica, pt was found and taken back home. Veronica stated because of the pts dementia she is worried that he may take off in his car or walking and have no concept to find his way back home. Addendum entered by Mercedes Alfredo 09/20/24 11:26: Pending PT eval and will submit all docs to [facility] for SNF placement. Addendum entered by Mercedes Alfredo 09/20/24 10:54: 1045-Pts daughter Veronica entered the ER and presented a letter from Dr. Jaimes's office stating that the pt needs 24 hour facility care due to dementia and patient being non-compliant with meds. ASW will provide this letter to SNFs and will place in pts chart. Addendum entered by Mercedes Alfredo 09/20/24 10:39: ASW met with APS worker Jayshree JAVIER III at the ED Office regarding this pt. According to Jayshree, there is a long hx of referrals regarding this pt and there are significant concerns with this pts capability to care for himself, as she stated the pt has early signs of dementia. Jayshree stated she will attempt to locate family to berry picker machine operator the pt and potentially care for him, but she stated the daughter Veronica is not willing to give up names of the pts children. Jayshree stated the pt cannot care for himself at home and reported that it is a danger to d/c the pt home, as there are [id number] risks that the pt may unintentionally harm himself at home, as he cannot care for himself. ASW will attempt to place pt in a SNF with dementia care. ASW completed the PASRR which met the criteria for a Level I PASRR. PASRR JEANNINE: [phone]. Addendum entered by Mercedes Alfredo 09/20/24 08:20: [facility] received a call from APS worker Jayshree who stated she is on her way from [place] to see the pt and address the concerns. Original Note: 0724-ASW contacted the pts daughter Veronica and asked her what her plan was regarding the pt and if she was going to pick him up. Veronica reported that she is not going to pick him up and stated that she spoke with Dr. Jaimes and Dr. Jaimes told her to have us call her, and continued to say that Dr. Jaimes said, He cannot be home alone. ASW informed Veronica that since she is refusing to pick the pt up, that there will be an APS report made for abandonment and she said, That's fine. Do what you need to do.
--- NOTE | 2024-09-20 08:55 | PC.NURSE ---
Acquired pt from previous nurse, pt is awaiting visit from APS. I checked pt's BS due to his hx of DM and the previous nurse stated pt hadn't eaten, BS was in acceptable range as far as not being too low, I asked pt is he was hungry and he said not currently. I will monitor pt, keep an eye on his blood sugar, and ask him frequently if he is ready to eat so that I can talk to docotor and order a tray for pt when he is ready to eat.
--- NOTE | 2024-09-20 12:05 | PC.PT ---
Family is requesting LTC placement due to patient has dementia and is at risk for wandering. Patient is agreeable to be transferred to SNF he said to get his feet back. If insurance will not authorize SNF, He will need homehealth PT/OT/SN to assess patient's safety at home and he will need a RW.
--- NOTE | 2024-09-20 18:12 | PD.EDADDENDU ---
Emergency Room Addendum <Wendy Quintero - Last Filed: 09/21/24 04:29> Addendum Narrative: 1800: Care assumed from Dr. Pereyra (emergency physician). Past medical, surgical, social and family history reviewed. Vitals and home medications reviewed. Results and treatment plan discussed. They will assume the care of the patient at this time and will follow the patient, pending SNF placement. The following addendum documentation note is intended to reflect any pending information, findings, or radiology results not included in the patient?s initial chart by the previous shift scribe. 0600: Care assumed by Dr. Pereyra (emergency physician). Past medical, surgical, social and family history reviewed. Vitals and home medications reviewed. Results and treatment plan discussed. They will assume the care of the patient at this time and will follow the patient, pending SNF placement. <Faye Lynch - Last Filed: 09/22/24 04:58> Addendum Narrative: 1800: Care assumed from Dr. Pereyra (emergency physician). Past medical, surgical, social and family history reviewed. Vitals and home medications reviewed. Results and treatment plan discussed. They will assume the care of the patient at this time and will follow the patient, pending SNF placement. Please refer to the emergency department record for history and examination from initial visit. Patient remained clinically stable while under my care. 0600: Care assumed by Dr. Pereyra (emergency physician). Past medical, surgical, social and family history reviewed. Vitals and home medications reviewed. Results and treatment plan discussed. They will assume the care of the patient at this time and will follow the patient, pending SNF placement.
--- NOTE | 2024-09-20 18:52 | PC.NURSE ---
Pt's med rec had not been done, Spoke with daughter Sonya Rutledge and she gave me the list of his meds to the best of her ability
[2024-09-20] MEDS: METOPROLOL SUCCINATE XL 25 MG TABCR PO (19:54)
[2024-09-20] MEDS: Furosemide 40 MG TABLET PO (19:54)
[2024-09-20] MEDS: MEMANTINE HCL 5 MG TABLET 10 MG PO (19:56)
[2024-09-20] MEDS: metFORMIN 850 MG TABLET PO (19:57)
[2024-09-20] MEDS: PARoxetine HCL 10 MG TABLET 30 MG PO (19:57)
[2024-09-20] MEDS: APIXABAN 2.5 MG TABLET PO (21:13)
[2024-09-20] MEDS: DONEPEZIL HCL 5 MG TABLET 10 MG PO (21:14)
[2024-09-21] VITALS (7 sets, daily range): BP systolic 137–171; BP diastolic 69–96; PULSE 60–83; RESP 16–18; TEMP 36.3–36.8; O2SAT 95–97
--- NOTE | 2024-09-21 06:24 | PC.NURSE ---
Gave update to Daughter
--- NOTE | 2024-09-21 06:43 | PD.EDADDENDU ---
Emergency Room Addendum Addendum Narrative: 0600: Care assumed from Dr. Duque, the previous shift emergency physician. Past medical, surgical, social and family history reviewed. Vitals and home medications reviewed. I will assume the care of the patient at this time, pending insurance authorization for SNF placement. Please refer to the emergency department record for history and examination from initial visit.?The following addendum documentation note is intended to reflect any pending information, findings, or radiology results not included in the patient?s initial chart. The manager social media notified the team that she contacted the public guardian, who provided the phone number of the patient?s granddaughter. The manager social media then spoke with the granddaughter, who stated she will be picking up the patient and taking him home. Reportedly, efforts to establish a conservatorship for the patient have been ongoing. Throughout the ED course, the patient remained stable and was discharged in stable condition.
--- NOTE | 2024-09-21 09:17 | PC.CC ---
ASWNida spoke with Jamila at [facility] who reports they will not be providing auth as he does not qualify for rehab services. ASW, was informed that patient has a secondary insurance that can be used for SNF placement. CHRISTINAW called and left a message with Zulma at [facility].
--- NOTE | 2024-09-21 10:29 | PC.NURSE ---
PATIENT AMBULATED TO RESTROOM AND BACK TO ROOM UNDER OBSERVATION OF POLYMERIZATION OVEN OPERATOR.
--- NOTE | 2024-09-21 10:47 | PC.CC ---
Per Carmella, I let Mercedes know yesterday I was going to have to open up a bed for him on our secure unit. Unfortunately, after meeting with the team this morning, we are not comfortable moving the other patient off of the secure unit at this time. I'm very sorry! I thought we might be able to do it, but we can't.
--- NOTE | 2024-09-21 10:53 | PC.CC ---
ASW, sent referral [facility]. [facility] is not able to accommodate patient.
[2024-09-21] MEDS: APIXABAN 2.5 MG TABLET PO (11:43)
[2024-09-21] MEDS: DiphenhydrAMINE 25 MG CAPSULE PO (11:43)
[2024-09-21] MEDS: METOPROLOL SUCCINATE XL 25 MG TABCR PO (11:44)
[2024-09-21] MEDS: Furosemide 40 MG TABLET PO (11:45)
[2024-09-21] MEDS: OLANZapine 5 MG TABLET 10 MG PO (11:46)
[2024-09-21] MEDS: PARoxetine HCL 10 MG TABLET 30 MG PO (11:47)
[2024-09-21] MEDS: MEMANTINE HCL 5 MG TABLET 10 MG PO (11:47)
--- NOTE | 2024-09-21 14:50 | PC.CC ---
Addendum entered by Mercedes Alfredo 09/21/24 18:45: LATE ENTRY: MARIANO Alfredo received a call from pts daughter Veronica at 1756 questioning who the pt was discharged to and board writer informed her that a grandchild came to pick him up. Veronica went on to mumble, Now I don't know what to do, and ended the call. Addendum entered by Mercedes Alfredo 09/21/24 17:02: 1659-Pts granddaughter Shira Barksdale [phone] who resides at [address] [place] [address], arrived to take the pt home with her. Shira stated she will be providing care for the pt and plans to gain emergency guardianship or conservatorship of the pt. CHRISTINAW spoke with pt and asked if he would like to go home with Shira and he said, yes, and asked if he would like me to call his daughter Veronica to inform her that he is leaving the hospital with Shira and he said, No. Addendum entered by Mercedes Alfredo 09/21/24 16:29: 1623-MARIANO Alfredo contacted Thea Lewis [phone] and she did not answer. ASW contacted Shira Barksdale [phone] and she stated she has been trying to care for the pt for years now, but pts daughter Veronica always interferes. CHRISTINAW explained the situation and she stated she will come to the hosptial to cherry picker operator the pt and she will take him to her home to care for him. Shira stated she will have a family meeting and move forward with being able to care for the pt legally. Addendum entered by Mercedes Alfredo 09/21/24 16:23: 1548-MARIANO Alfredo spoke with pts daughter Veronica as she called this board writer and stated firmly, I called my trial attorney, I called Public Guardian and they both told me that you need to keep him! and proceeded to say that she is calling her trial attorney because it is the hospitals responsibility to keep the pt. Miner Helper asked her if there are any other sibilings or family that could possibly take the pt, and she said, No they all live out of state! She then said, Good bye! Veronica then hung up the phone. 1415-MARIANO contacted APS and made another report regarding that the pts daughter is refusing to cherry picker operator the pt. APS worker Ava took the report. 1610-ASW contacted Public Guardian and spoke with Leonor and VANNA Jensen who both denied stating that they informed the pts daughter Veronica that we need to keep him and place him. VANNA Jensen provided relative names that could possibly cherry picker operator the pt : Denisha Looney [phone] Catrina Lewis [phone] Shira Barksdale [phone] Addendum entered by Mercedes Alfredo 09/21/24 15:41: MARIANO Glass and MARIANO Alfredo submitted to all Locked Facilities via [facility] and there are no accepting facilities. 1547-ASW contacted APS to make report, as the daughter is refusing to cherry picker operator the pt, and board writer was transferred to a voice mail. ASW left a message requesting a return call. As of this writing, no one has returned the call. Addendum entered by Mercedes Alfredo 09/21/24 15:29: ASW contact the pts daughter and informed her that we have over exhausted our resources, there are no accepting facilities at this time and she needs to come cherry picker operator the pt. Veronica then raised her voice and said, Before you say what you're going to say, the Public Guardian is the one who told me that you need to keep him. ASW informed her that since she is the Power of Teleprinter Installer she is responsible for the pt and the ER is not an appropriate long term care social worker setting for the pt. Veronica proceeded to hang up on board writer. ASW attempted to contact [facility] but I was transferred to her voice mail. Miner Helper left a message requesting a return call. Original Note: 3479-MARIANO Alfredo received a call from pts daughter Veronica and wanted an update on the pt. ASW informed Veronica that as of now, [facility] did in-fact decline due to no bed availability. Veronica stated she will contact [facility], as she was told by Pel[facility] that the pt would be accepted and Veronica completed a tour of the residence this morning at 9am. 3825-MARIANO Alfredo contacted [facility] in [place] and stated they will need to decline as they are not contracted with pts insurance.
== END 2024-09-21 17:18 | disposition home or self-care (01) ==
PROVIDERS: Emergency Provider Emergency Medicine; PCP Internal Medicine
DX: F10.129 Alcohol abuse with intoxication, unspecified (principal); E86.0 Dehydration; E78.5 Hyperlipidemia, unspecified; E11.9 Type 2 diabetes mellitus without complications; I10 Essential (primary) hypertension; N40.0 Benign prostatic hyperplasia without lower urinary tract symptoms; Z95.1 Presence of aortocoronary bypass graft; F03.90 Unspecified dementia, unspecified severity, without behavioral disturbance, psychotic disturbance, mood disturbance, and anxiety
CPT/HCPCS: 36415; 70450; 71045; 80053; 80320; 81001; 83605; 84484; 85025; 93005; 96360; 96361; 99284; J7030; A9270; G0480

== ENCOUNTER 2024-11-16 14:01 | Emergency (ER) | payer OTHER, MEDICAID, SELFPAY ==
[2024-11-16 14:11] VITALS: PULSE 80; RESP 18; O2SAT 98; BMI 29.2
--- NOTE | 2024-11-16 14:16 | EKG_ITS ---
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
[2024-11-16 14:17] VITALS: BP 151/69; PULSE 71; RESP 18; TEMP 37.4; O2SAT 98
--- NOTE | 2024-11-16 14:17 | PD.EDADULT ---
ED General RME/HPI General Chief complaint: General Adult/Misc Complain Stated complaint: EVALUATION Time Seen by Provider: 11/16/24 14:07 Arrival date/time: 11/16/24 14:01 RME / HPI RME / HPI narrative: 89-year-old male patient with history of dementia, hypertension diabetes mellitus was brought in by EMS for social issues. Apparently patient caregiver a distant relative cannot take care of him anymore. Patient been arguing with caregiver today. When I asked the patient patient does not really have a good relationship with his caregiver. Currently patient is denying any chest pain no shortness of breath no complaints. Patient is ambulatory. Patient's answer question appropriately. Patient told me that he own his house. Related Data Home Medications ?Medication ?Instructions ?Recorded ?Confirmed Multivitamins (Daily Multiple 1 tab PO QDAY ##0 03/17/14 09/20/24 Vitamin) omega-3 fatty acids 1,000 mg 1 cap PO QDAY ##0 03/17/14 06/18/20 capsule (Fish Oil Concentrate) atorvastatin 20 mg tablet 20 mg PO QDAY 11/12/18 09/20/24 losartan 50 mg tablet 50 mg PO QDAY 11/12/18 09/20/24 metformin 850 mg tablet 850 mg PO QDAY 11/12/18 09/20/24 ticagrelor 90 mg tablet (Brilinta) 90 mg PO BID 11/12/18 06/18/20 aspirin 81 mg tablet 81 mg PO QDAY 06/14/20 09/20/24 acetaminophen 650 mg 1,300 mg PO Q12H PRN pain 09/20/24 09/20/24 tablet,extended release (Pain Relief (acetaminophen)) apixaban 2.5 mg tablet (Eliquis) 2.5 mg PO BID 09/20/24 09/20/24 benzonatate 100 mg capsule 100 mg PO .Day 09/20/24 09/20/24 donepezil 10 mg tablet 10 mg PO HS 09/20/24 09/20/24 furosemide 40 mg tablet 40 mg PO DAILY 09/20/24 09/20/24 memantine 10 mg tablet 10 mg PO DAILY 09/20/24 09/20/24 metoprolol succinate 25 mg 25 mg PO DAILY 09/20/24 09/20/24 tablet,extended release 24 hr paroxetine HCl 30 mg tablet 30 mg PO DAILY 09/20/24 09/20/24 pimavanserin 34 mg capsule 34 mg PO QDAY 09/20/24 09/20/24 (Nuplazid) Previous Rx's ?Medication ?Instructions ?Recorded Calcium/Magnesium (Calcium 1 tab PO QDAY 11/03/18 Magnesium Tablet) cholecalciferol (vitamin D3) 25 2,000 iu PO QDAY 11/03/18 mcg (1,000 unit) tablet (Vitamin D3) multivitamin with minerals-ferrous 1 tab PO QDAY 11/03/18 sulfate 4.5 mg iron tablet (One Daily Multivitamins with Minerals) acetaminophen 300 mg-codeine 15 mg 1 tab PO BID PRN pain #8 tabs 06/05/22 tablet Allergies Allergy/AdvReac Type Severity Reaction Status Date / Time No Known Allergies Allergy Verified 11/16/24 14:18 Review of Systems Review of Systems Narrative Review of Systems: Review of system reviewed and within normal limits except mentioned in HPI ED Exam Narrative Physical exam: VITAL SIGNS: Reviewed. GENERAL APPEARANCE: Alert and interactive, follows commands, no acute distress, HEAD AND FACE: Non-traumatic. ENT: PERRL, pink conjunctivitis, eyelid no trauma, Mucous membrane moist. NECK: Supple, nontender, no nuchal rigidity. CHEST: No tenderness, no crepitus, no paradoxical movement, no retractions. LUNGS: Clear, well ventilated, symmetric, no rales, no wheezing, no ronchi, no stridor, good breath sounds bilaterally. HEART: Regular rate, regular rhythm, no murmur, no gallops. ABDOMEN: Soft, positive bowel sounds, nondistended, no guarding, nontender, no rebound, no masses, RECTAL: Deferred. GENITAL: Deferred. NEUROLOGICAL: Gross motor function intact sensory function intact, Appropriate for age. MUSCULOSKELETAL: low back nontender, full range of motion. EXTREMITIES: Nontender, full range of motion. SKIN: Color pink, dry, no rash, no lacerations, no abrasions, no contusions. LYMPHATICS: Deferred. Course Quality Measures none Orders Category Date Time Status Consult Commercial Electrician Care 11/16/24 14:17 Completed EKG (ED ONLY) *Do not use* NOW Care 11/16/24 14:16 Completed EKG (ED Only) Stat Exams 11/16/24 14:16 Draft CBC [CBC] Stat Lab 11/16/24 14:25 Completed CMP [Comprehensive Metabolic Panel] Stat Lab 11/16/24 14:25 Completed Drug Screen,Urine Stat Lab 11/16/24 14:23 Completed Troponin I Stat Lab 11/16/24 14:25 Completed UA, C/S IF [Urinalysis, C/S if Indicated] Stat Lab 11/16/24 14:23 Completed Diazepam Inj [Valium Inj] Med 11/16/24 22:51 Discontinued 5 mg IVP X1 ONE DiphenhydrAMINE INJ [Benadryl Inj] Med 11/16/24 21:46 Discontinued 50 mg IM X1 ONE Haloperidol Lactate [Haldol Inj] Med 11/16/24 22:03 Discontinued 5 mg IM X1 ONE LORazepam [Ativan] Med 11/16/24 20:47 Discontinued 2 mg PO X1 ONE OLANZapine INJ [Zyprexa Inj] 10 mg Med 11/17/24 01:43 Active Sterile Water 2.1 ml IM QDAY Late Tray Request Routine Oth 11/17/24 09:04 Active Vital Signs Vital signs: Vital Signs Temperature 99.3 F 11/16/24 14:17 Pulse Rate 71 11/16/24 14:17 Respiratory Rate 18 11/16/24 14:17 Blood Pressure 151/69 H 11/16/24 14:17 Pulse Oximetry (%) 98 11/16/24 14:17 Oxygen Delivery Method Room Air 11/16/24 14:17 Discharge Plan Plan Patient Disposition: Xfer Skilled Nsg Fac (SNF) Prescriptions/Referrals Prescriptions/Med Rec: No Action losartan 50 mg tablet 50 mg PO QDAY atorvastatin 20 mg tablet 20 mg PO QDAY metformin 850 mg tablet 850 mg PO QDAY Brilinta 90 mg tablet 90 mg PO BID omega-3 fatty acids [Fish Oil Concentrate] 1 CAP capsule 1 cap PO QDAY Qty: 0 Multivitamins (Daily Multiple Vitamin) 1 TAB tablet 1 tab PO QDAY Qty: 0 aspirin 81 mg Tablet 81 mg PO QDAY cholecalciferol (vitamin D3) [Vitamin D3] 1,000 unit Tablet 2,000 iu PO QDAY 0RF One Daily Multi-Vit w-Mineral 4.5 mg iron Tablet 1 tab PO QDAY 0RF Calcium/Magnesium (Calcium Magnesium Tablet) 1 tab PO QDAY 0RF acetaminophen-codeine 300-15 mg tablet 1 tab PO BID PRN (Reason: pain) Qty: 8 0RF Nuplazid 34 mg capsule 34 mg PO QDAY benzonatate 100 mg capsule 100 mg PO .Day Patient Comments: TAKE 1 CAPSULE BY MOUTH TWICE A DAY metoprolol succinate 25 mg tablet extended release 24 hr 25 mg PO DAILY Patient Comments: TAKE 1 TABLET BY MOUTH EVERY DAY Eliquis 2.5 mg tablet 2.5 mg PO BID memantine 10 mg tablet 10 mg PO DAILY furosemide 40 mg tablet 40 mg PO DAILY donepezil 10 mg tablet 10 mg PO HS Patient Comments: TAKE 1 TABLET BY MOUTH EVERY DAY IN THE EVENING paroxetine HCl 30 mg tablet 30 mg PO DAILY acetaminophen [Pain Relief (acetaminophen)] 650 mg tablet extended release 1,300 mg PO Q12H PRN (Reason: pain) Referrals: Danae Chan MD [Primary Care Provider] - In 1 week Problem List Clinical Impression: Dementia, Aggressive behavior Patient/Caregiver Discharge Instructions Print Language: Somali Stand Alone Forms: Nelida Award Info., Patient Portal Info Letter MDM Narrative MDM hospital course: 89-year-old male patient with history of dementia, hypertension diabetes mellitus was brought in by EMS for social issues. Apparently patient caregiver a distant relative cannot take care of him anymore. Patient been arguing with caregiver today. When I asked the patient patient does not really have a good relationship with his caregiver. Currently patient is denying any chest pain no shortness of breath no complaints. Patient is ambulatory. Patient's answer question appropriately. Patient told me that he own his house. Patient's workup today all came back unremarkable. I did not notice any metabolic or infectious process. Patient is medically cleared to go to assisted Care transferrede to Dr Moore at 11 pm for final disposition Medication Administration(s) Medication Administration History Olanzapine 10 mg/ Sterile (Water 2.1 ml) 0 mg IM QDAY ALEJANDRO Stop: 12/17/24 01:42 Last Admin: 11/17/24 10:01 Dose: 10 dose Documented By: Admin: 11/17/24 01:55 Dose: 1 dose Documented By: TEJAS Discontinued Medications Diazepam (Diazepam Inj 5 Mg/Ml Vial 2 Ml) 5 mg IVP X1 ONE Stop: 11/16/24 22:52 Last Admin: 11/16/24 23:15 Dose: 5 mg Documented By: TEJAS Diphenhydramine HCl (Diphenhydramine Inj 50 Mg/Ml Vial) 50 mg IM X1 ONE Stop: 11/16/24 21:47 Last Admin: 11/16/24 21:57 Dose: 50 mg Documented By: CB Haloperidol Lactate (Haloperidol Lact Inj 5 Mg/Ml Vial) 5 mg IM X1 ONE Stop: 11/16/24 22:04 Last Admin: 11/16/24 22:10 Dose: 5 mg Documented By: TEJAS Lorazepam (Lorazepam 0.5 Mg Tablet) 2 mg PO X1 ONE Stop: 11/16/24 20:48 Last Admin: 11/16/24 21:05 Dose: 2 mg Documented By: CB
[2024-11-16 14:29] LABS: Collection Type, Urine Clean Catch; Squamous Epithelial Cell,Urine 0 /hpf (0-5)
[2024-11-16 14:30] LABS: Basophils # (Auto) 0.0 Thou/mm3 (0.0-0.2); Basophils % (Auto) 0 % (0-2.5); Eosinophils # (Auto) 0.1 Thou/mm3 (0.0-0.5); Eosinophils % (Auto) 1 % (0-10); Hematocrit 35.0 % (41.0-53.0); Hemoglobin 11.6 g/dL (13.5-16.0); Immature Granulocytes Auto 0.01 Thou/mm3 (0.00-0.00); Lymphocytes # (Auto) 1.8 Thou/mm3 (1.0-4.8); Lymphocytes % (Auto) 24 % (10-50); Mean Corpuscular HGB Conc 33.1 g/dl (31.0-37.0); Mean Corpuscular Hemoglobin 31.5 pg (25.0-35.0); Mean Corpuscular Volume 95 fL (80-100); Monocytes # (Auto) 0.6 Thou/mm3 (0.0-0.8); Monocytes % (Auto) 8 % (0-12); Neutrophils # (Auto) 5.0 Thou/mm3 (1.8-7.7); Neutrophils % (Auto) 66 % (37-80); Nucleated Red Blood Cell # 0.00 Thou/mm3 (0.00-0.00); Nucleated Red Blood Cell % 0 /100 WBC (0); Platelet Count 179 Thou/mm3 (140-440); RDW Standard Deviation 46.0 fL (35.1-43.9); Red Blood Count 3.68 Miln/mm3 (4.50-5.90); White Blood Count 7.5 Thou/mm3 (3.8-10.6)
[2024-11-16 14:34] LABS: Bilirubin,Urine Negative (Negative); Blood,Urine Negative (Negative); Clarity,Urine Clear (Clear/Hazy); Color,Urine Lt-Yellow (Lt Yel-Yel); Culture Indicated,Urine Not Indicated; Glucose, Urine Negative (Negative); Hyaline Casts,Urine < 1 /hpf (0-1); Ketones,Urine Negative (Negative); Leukocyte Esterase,Urine Negative (Negative); Nitrite,Urine Negative (Negative); PH,Urine 7.5 (5.0-7.0); Protein,Urine Negative (Neg - Trace); RBC,Urine 1 /hpf (0-3); Specific Gravity,Urine 1.012 (1.001-1.035); Urobilinogen,Urine Negative mg/dL (0.0-1.0); WBC,Urine 1 /hpf (0-5)
[2024-11-16 14:40] LABS: Amphetamine/Methamp Scrn,U Negative (Negative); Barbiturate Screen,Urine Negative (Negative); Benzodiazepines Screen,Urine Negative (Negative); Benzoylecgonine Screen, Ur Negative (Negative); Fentanyl Screen,Urine Negative (Negative); Opiate Screen,Urine Negative (Negative); THC Screen,Urine Negative (Negative)
[2024-11-16 14:49] LABS: Alanine Aminotransferase 12 U/L (10-49); Albumin, Serum 4.3 gm/dL (3.4-4.8); Albumin/Globulin Ratio 1.5 (1.2-2.2); Alkaline Phosphatase 72 U/L (46-116); Anion Gap 8 (7-16); BUN/Creatinine Ratio 14 Ratio (12-20); Bilirubin,Total 0.4 mg/dL (0.3-1.2); Blood Urea Nitrogen 15 mg/dL (9-23); Calcium 9.6 mg/dL (8.3-10.6); Calcium (Corrected) 9.6 mg/dL (8.5-10.1); Carbon Dioxide 30.7 mMol/L (20.0-31.0); Chloride 102 mMol/L (98-107); Creatinine (Component) 1.1 mg/dL (0.6-1.3); Estimated Creatinine Clearance 43.6 mL/min (>60); Globulin 2.8 gm/dL (2.3-3.5); Glucose 104 mg/dL (74-106); Osmolality,Calculated 282 (275-295); Potassium 4.2 mMol/L (3.4-5.1); Sodium 141 mMol/L (136-145); Total Protein 7.1 gm/dL (5.7-8.2); Troponin I < 0.020 ng/mL (0.0-0.045); eGFR > 60 See Note
--- NOTE | 2024-11-16 15:00 | PC.CC ---
Nida QUINTANA was consulted by DENIS Mcneill regarding possible SNF placement for the patient. ASW met face to face with the patient introduced self, role, and reason for visit to patient. Patient appears to be alert and oriented to self and location. Patient reports his granddaughter takes care of him and cooks for him daily. He reports that they have little disagreements but overall they have a good relationship. Patient ambulates independently and receives [facility]. It was reported by physical education department chair Alicia that patient's granddaughter has conservatorship over patient.
[2024-11-16 15:17] LABS: Aspartate Amino Transferase 22 U/L (0-34)
--- NOTE | 2024-11-16 15:46 | PC.CC ---
Patient's conservator Shira Barksdale presented herself to the hospital. ASW made [id number] contact with conservator as she would like to speak with medical social worker at bedside was also [facility] SUCTION PLATE CARRIER CLEANER, Valerie Fuentes. Patient's conservator reports she can no longer care for the patient as his dementia has become overwhelming for her. She reports that the patient attempts to leave the house without knowing where he is going. Per conservator, patient is DNR/DNI and is receiving hospice services through [facility] for the dementia. ASW informed the conservator that an APS report will need to be filed for abandonment which she stated she understood and was also in contact with [facility]. ASW explained to conservator that a referral to SNF will be sent out but it [place] county which she agreed was okay. ASW filed APS report with HESHAM Ochoa and faxed report to [phone].
[2024-11-16 16:19] VITALS: BP 148/86; PULSE 83; RESP 16; O2SAT 97
--- NOTE | 2024-11-16 16:19 | PC.NURSE ---
Patient to er via ems with c/o getting into argument with family member, currently patient does not know the name of the young lady he was having a dissaggreement with patient states she wants things one way and I want things another patient not elaborating on why he was brought to the hospital. Pt states she wants to stay in my house because she wants to be the boss but she can't when asking patient her name patient states i can't think of it . Patient given reassurance and reoriented to situation. Patient states ok and will need further instructions. social service will consult with patient
--- NOTE | 2024-11-16 16:34 | PC.NURSE ---
patient pants and underwear soiled of urine, patient clothing removed, clean, dry gown and brief applied, patient placed in gurney, call light within reach as well as urinal.
--- NOTE | 2024-11-16 17:21 | PC.CC ---
Leighton with [facility] could possibly take the patient tomorrow. Leighton reports he will contact tomorrow to confirm.
--- NOTE | 2024-11-16 17:58 | PC.CC ---
Patient is a 89 year-old male who presents to the hospital for a check-up/behavioral issues. ASWNida made face to face contact with patient and conservator Shira Shamir who reports living with the patient. ASW introduced self, role, and reason for visit patient appeared alert and oriented to self and location. Shira provided documentation from [facility] that indicate she is the conservator for the patient. She reports patient is DNR/DNI. Patient has become aggressive towards her when she attempts to redirect the patient when he tries to wander off the home. Patient is ambulatory and she assist him with his ADLs. Patient's dementia has progressed which has made it difficult to be care for. Patient is receiving hospice through [facility] for his dementia. ASW explained to conservator that an APS report will be filed for abandonment which she indicated she understood and she had been in contact with APS. ASW filed report with Macie Lynch with APS and faxed report to [phone]. ASW to sent referral via [facility] to SNFs and locked facilities.
--- NOTE | 2024-11-16 18:58 | PC.CC ---
PASSR Level 2 was completed and closed out.
[2024-11-16 19:24] VITALS: BP 164/86; PULSE 80; RESP 16; TEMP 37; O2SAT 97
[2024-11-16 19:25] VITALS: BP 173/73; PULSE 64; RESP 19; TEMP 36.9; O2SAT 98
[2024-11-16] MEDS: HALOPERIDOL LACT INJ 5 MG/ML VIAL IM (22:10)
[2024-11-16] MEDS: DIAZEPAM INJ 5 MG/ML VIAL 2 ML IVP (23:15)
--- NOTE | 2024-11-16 23:25 | PD.EDADDENDU ---
Emergency Room Addendum Addendum Narrative: 2300: Care assumed from Ioana Betancourt NP. Past medical, surgical, social and family history reviewed. Vitals and home medications reviewed. Results and treatment plan discussed. I will assume the care of the patient at this time and will follow the patient, pending SNF placement. Please refer to the emergency department record for history and examination from initial visit. 0600: Care signed out to Dr. Simon (emergency physician). Past medical, surgical, social and family history reviewed. Vitals and home medications reviewed. Results and treatment plan discussed. They will assume the care of the patient at this time and will follow the patient, pending SNF placement.
[2024-11-17] VITALS (8 sets, daily range): BP systolic 146–169; BP diastolic 73–96; PULSE 62–73; RESP 15–19; TEMP 36.5–37.1; O2SAT 95–98
[2024-11-17] MEDS: OLANZapine INJ 10 MG, Sterile Water 2.1 ML IM ×2 (01:55→10:01)
--- NOTE | 2024-11-17 06:24 | PC.NURSE ---
complete linen and brief change at 0200 and again at 0625
--- NOTE | 2024-11-17 07:25 | EDNOTE_ITS ---
Emergency Room Addendum Addendum Narrative: 0600: Care assumed from Dr. Lu, the previous shift emergency physician. Past medical, surgical, social and family history reviewed. Vitals and home medications reviewed. I will assume the care of the patient at this time, pending SNF placement. The patient was placed in ED observation care at 0600 11/17/2024. While in ED observation the pt will have access to water, food, and personal hygiene. If the pt takes home medication(s), they will be continued in ED observation. Please refer to the emergency department record for history and examination from initial visit.?The following addendum documentation note is intended to reflect any pending information, findings, or radiology results not included in the patient?s initial chart. 1110: Patient has been accepted at [facility] in [place]. EMS p/u 15:00. 1520: EMS here to transfer the patient, he has remained stable through ED course.
--- NOTE | 2024-11-17 09:18 | PC.CC ---
Leighton Rollins in [place] made telephone contact with this mortgage loan underwriter and informed that he will be contacting us before 11 to inform us if he is able to take the patient.
--- NOTE | 2024-11-17 09:25 | PC.CC ---
Patient was accepted to [facility] by Dr. Xiao Monroyress. Nurse to Nurse is [phone] ext [phone]. PLACEMENT ASSISTANT provided update to medical team of accepting facility. PLACEMENT ASSISTANT provided update to patient. PLACEMENT ASSISTANT to arrange transportation.
--- NOTE | 2024-11-17 10:42 | PC.CC ---
WEIGHT YARDAGE CHECKERNida made telephone contact with patient's conservator Shira Barksdale who reports that no one is to pick the patient up to the hospital and she is okay with the patient being placed at a locked SNF out of the area. RAYA informed her that this caption writer would keep her updated as soon as we locate an accepting facility.
--- NOTE | 2024-11-17 11:22 | PC.CC ---
Patient was accepted to [facility] [address] [address], [address], Leighton provided accepting information. AD CLERKNida provided accepting information to patient's conservator Shira Barksdale , who was receptive to information. AD CLERK provided update to medical team. AD CLERK to arrange transportation.
--- NOTE | 2024-11-17 11:47 | PC.CC ---
DEPUTY PROBATION OFFICER made contact with [facility] to get a reservation number twice and was referred to their eligibility team who reports the patient does not have coverage for transportation. DEPUTY PROBATION OFFICER made telephone contact with conservShira patel who reports she cannot pay for transportation. DEPUTY PROBATION OFFICER will obtain an LELE for transportation and arrange transportation with [facility].
--- NOTE | 2024-11-17 14:58 | PC.NURSE ---
EMS HERE TO TRANSPORT PT TO FACILITY AT THIS TIME
== END 2024-11-17 15:02 | disposition skilled nursing facility (03) ==
PROVIDERS: Nurse Practitioner Family; Emergency Provider Family Medicine; PCP Internal Medicine Hospice and Palliative Medicine
DX: Z02.2 Encounter for examination for admission to residential institution (principal); F03.911 Unspecified dementia, unspecified severity, with agitation; I48.92 Unspecified atrial flutter; I10 Essential (primary) hypertension; E11.9 Type 2 diabetes mellitus without complications; Z79.84 Long term (current) use of oral hypoglycemic drugs; Z79.01 Long term (current) use of anticoagulants; Z75.1 Person awaiting admission to adequate facility elsewhere
CPT/HCPCS: 36415; 80053; 80307; 81001; 84484; 85025; 93005; 96374; 99283; A4216; J1200; J1630; J2358; J3360; A9270; J2359